=== PATIENT | male | born 1990 | race African-American/Black ===

== ENCOUNTER 2024-07-23 01:51 | Emergency (ER) | payer OTHER, SELFPAY ==
--- NOTE | ~2024-07-23 | XR_ITS ---
Left Humerus Technique: AP and lateral views were obtained. Clinical History: Pain Findings: No fracture or dislocation is seen. Osseous alignment is anatomic. Visualized joint spaces are grossly preserved. Soft tissues are unremarkable. Impression: Unremarkable examination. No fracture or dislocation. Reviewed, dictated and finalized at location . Impression: Unremarkable examination. No fracture or dislocation.
--- NOTE | ~2024-07-23 | XR_ITS ---
Left elbow Technique: AP, oblique, and lateral views were obtained. Clinical History: Pain Findings: No acute fracture or dislocation is seen. Osseous alignment is anatomic. Joint spaces are p reserved. There is no displacement of the fat pads, and soft tissues are unremarkable. Impression: Unremarkable radiographs. Reviewed, dictated and finalized at location . Impression: Unremarkable radiographs.
[2024-07-23 01:58] VITALS: BP 134/90; PULSE 83; RESP 17; TEMP 37.2; O2SAT 95
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
[2024-07-23] MEDS: KETOROLAC 30 MG/ML VIAL (*BKC) IM (02:40)
--- OUTSIDE RECORDS SUMMARY | 2024-07-23 02:43 | XMS_ITS | Clinical Summary ---
Author Organization [facility] [employer] Address [address] [place] [address] Care Team Providers Care Tin Worker Name Role Phone Unavailable Primary Care Provider Unavailabl e Source Comments [facility] [employer],non-owned Affiliates and Associated Physician Practices is amultiple site organization consisting of ambulatory clinics and hospital sitesin [place], [place], [place] and [place]. This disclosure is being madepursuant to the Care Everywhere program and may not contain all information available regarding this patient. Last updated 17.[facility] [employer] Allergies No known active allergies Medications * Be aware that medications may not be up to date on this document. Alwaysverify current medications with the patient. cetirizine (ZYRTEC) 10 MG tablet Take 1 tablet by mouth once daily 30 tablet 07/22/2019 Active fluticasone propionate (FLONASE) 50 MCG/ACT nasal spray [place] 2 sprays into each nostril once daily 16 g 07/22/2019 Active naproxen (NAPROSYN) 500 MG tablet Take 1 tablet by mouth 2 times daily 60 tablet 07/22/2019 Active Social History Tobacco Use Types Packs/Day Years Used Date Smoking Tobacco: Never Smokeless Tobacco: Never Sex and Gender Information Value Date Recorded Sex Assigned at Not on file Legal Sex Male 11:53 AM CDT Gender Identity Not on file Sexual Orientation Not on file Last Filed Vital Signs Vital Sign Reading Time Taken Comments Blood Pressure 128/68 07/22/2019 4:57 PM CDT Pulse 75 07/22/2019 4:57 PM CDT Temperature 37 C (98.6 F) 07/22/2019 4:57 PM CDT Respiratory Rate 16 07/22/2019 4:57 PM CDT Oxygen Saturation 100% 07/22/2019 4:57 PM CDT Inhaled Oxygen Concentration - - Weight 72.6 kg (160 lb) 07/22/2019 4:57 PM CDT Height 167.6 cm (5' 6 ) 07/22/2019 4:57 PM CDT Body Mass Index 25.82 07/22/2019 4:57 PM CDT Plan of Treatment Health Maintenance Due Date Last Done Comments HIV SCREENING 2005 HEPATITIS C SCREENING 01/02/2008 DTAP/TDAP/TD VACCINES (1 - Tdap) 2009 HEPATITIS B VACCINE (1 of 3 - 19+ 3-dose series) 2009 COVID-19 VACCINE (1 - 2023-2 5 season) 2023 DEPRESSION SCREENING 03/18/2024 INFLUENZA VACCINE (Season Ended) 2024 ZOSTER VACCINE (1 of 2) 01/07/2040 HIB VACCINE Aged Out No longer eligi ble based on patient's age to complete this topic HPV VACCINE Aged Out No longer eligi ble based on patient's age to complete this topic MENINGOCOCCAL (Group B) VACC INE SHARED DECISION-MAKING Aged Out No longer eligibl e based on patient's age to complete this topic MENINGOCOCCAL GROUPS A/C/Y/W VACCINE Aged Out No longer eligible b ased on patient's age to complete this topic PNEUMOCOCCAL VACCINE Aged Out No long er eligible based on patient's age to complete this topic Insurance [employer]
--- OUTSIDE RECORDS SUMMARY | 2024-07-23 02:43 | XMS_ITS | Clinical Summary ---
Author Organization [facility] Address [address] [place] [id number] Care Team Providers Care Electronics Worker Name Role Phone None, Provider MD Primary Care Provider Unavaila ble Allergies No known active allergies Family History Medical History Relation Comments No Known Problems Father No Known Problems Mother Relation Status Comments Father Alive Mother Alive Social History Tobacco Use Types Packs/Day Years Used Date Smoking Tobacco: Never Smokeless Tobacco: Never Tobacco Cessation:Counseling Given: Not Answered Alcohol Use Standard Drinks/Week Comments Never 0 (1 standard drink = 0.6 oz pur e alcohol) Sex and Gender Information Value Date Recorded Sex Assigned at Not on file Legal Sex Male 5:17 PM CDT Gender Identity Not on file Sexual Orientation Not on file Last Filed Vital Signs Vital Sign Reading Time Taken Comments Blood Pressure 147/102 04/30/2023 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 Pulse 77 04/30/2023 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 Temperature 36.3 C (97.4 F) 04/30/2023 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 Respiratory Rate 18 04/30/2023 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 Oxygen Saturation 99% 04/30/2023 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 Inhaled Oxygen Concentration - - Weight 59 kg (130 lb) 04/30/2023 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 Height 165.1 cm (5' 5 ) 04/30/2023 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 Body Mass Index 21.63 04/30/2023 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 Plan of Treatment Health Maintenance Due Date Last Done Comments Annual Physical 1993 DTaP, Tdap and Td Vaccines (6 - Tdap) 02/21/2005 02/20/2005, 11/15/1994, 04/28/1992, Additional history exists Hepatitis C 01/07/2008 COVID-19 Vaccine ( season) 2023 Hepatitis B Vaccines Completed 05/23/2001, 09/24/2000, 07/10/2000 Meningococcal Vaccine Aged Out 05/05/2008 No gelacio tia eligible based on patient's age to complete this topic HPV Vaccines Aged Out No longer eligi ble based on patient's age to complete this topic Meningococcal B Vaccine Aged Out No l onger eligible based on patient's age to complete this topic Pneumococcal Vaccine: Pediatrics (0 to 5 Years) and At-Risk Patients (6 to 49 Years) Aged Out No longer eligible based on patient's age to complete this topic RSV Immunizations Under 20 Months Aged Out No longer eligible based on patient's age to complete this topic Insurance [facility] Care Teams Electronics Worker Relationship Specialty Start Date End Date None, Provider, PCP - General 11/09/19
--- NOTE | 2024-07-23 02:55 | PC.NURSE ---
Pt provided with L arm sling, and applied.
[2024-07-23 03:00] VITALS: BP 134/90; PULSE 90; RESP 16; O2SAT 98
== END 2024-07-23 03:05 | disposition home or self-care (01) ==
LOC: ANHED 02:42
PROVIDERS: Emergency Provider Emergency Medicine
DX: S49.92XA Unspecified injury of left shoulder and upper arm, initial encounter (principal); V00.831A Fall from motorized mobility scooter, initial encounter
CPT/HCPCS: 73060; 73080; 96372; 99284; A4565; J1885